=== PATIENT | female | born 1950 | race Caucasian/White ===

== ENCOUNTER 2017-07-23 12:31 | Outpatient (CLI) | payer OTHER, MEDICARE | END 2017-07-23 19:09 | disposition home or self-care (01) | LOC: SRD 12:31 | PROVIDERS: ATTEND Emergency Medicine | DX: M79.89 Other specified soft tissue disorders (principal); M19.071 Primary osteoarthritis, right ankle and foot; R05 Cough | CPT/HCPCS: 71046-TC ==